=== PATIENT | female | born 1955 | race Caucasian/White ===

== ENCOUNTER 2017-04-29 08:14 | Outpatient (CLI) | payer BC | END 2017-04-29 08:15 | disposition home or self-care (01) | LOC: BICMAMMO 08:14 | PROVIDERS: ATTEND Obstetrics & Gynecology | DX: Z12.31 Encounter for screening mammogram for malignant neoplasm of breast (principal) | CPT/HCPCS: 77063; 77067 ==

== ENCOUNTER 2018-05-10 10:47 | Outpatient (CLI) | payer BC | END 2018-05-10 10:48 | disposition home or self-care (01) | LOC: BICMAMMO 10:47 | PROVIDERS: ATTEND Obstetrics & Gynecology | DX: Z12.31 Encounter for screening mammogram for malignant neoplasm of breast (principal); R92.1 Mammographic calcification found on diagnostic imaging of breast | CPT/HCPCS: 77063; 77067 ==

== ENCOUNTER 2019-07-18 11:38 | Outpatient (CLI) | payer BC ==
--- NOTE | 2019-07-18 12:07 | RAD ---
CERVICAL SPINE 7 VIEWS INCLUDING OBLIQUE VIEWS AND FLEXION AND EXTENSION LATERAL VIEWS: HISTORY: Inflammatory spondylopathy, radiculopathy, right-sided neck pain. FINDINGS: C7-T1 is partially obscured on the lateral view. C1 and C2 odontoid are partially obscured on the AP open mouth view. Generalized disk-osteophytosis and facet arthrosis changes are noted. There is a prominent osteophyte resulting in marked narrowing of the right C4-C5 foramen. There is approximatel y 0.3 cm anterolisthesis of C4 on C5, but no evidence for significant abnormal translation between fl exion and extension. No prevertebral soft tissue swelling. IMPRESSION: 1. A 0.3 cm anterolisthesis of C4 on C5 without abnormal translation between flexion and extension. Prominent right-sided C4-C5 foraminal osteophyte with marked foraminal narrowing. 2. No acute fracture or dislocation. 3. No evidence for bony erosive or destructive changes. 4. Consider followup MRI. POS: [facility]
--- NOTE | 2019-07-18 12:27 | BD ---
DEXA BONE DENSITY STUDY: HISTORY: Osteoporosis. Menopausal FINDINGS: Lumbar Spine: BMD (g/cm2) L1 0.723 T-Score: -2.4 L2 0.787 T-Score: -2.2 L3 0.810 T-Score: -2.5 L4 0.823 T-Score: -2.2 L1-L4 0.788 T-Score: -2.4 Evidence for osteopenia with increased risk for fracture. Bone mineral density has decreased approximately 21% from the prior 01/16/2010 study. Right Hip: Femoral Neck: 0.651 T-Score: -1.8 Total Femur: 0.914 T-Score: -0.2 Evidence for osteopenia with increased risk for fracture. Left Hip: Femoral Neck: 0.726 T-Score: -1.1 Total Femur: 0.968 T-Score: +0.2 Evidence for osteopenia with increased risk for fracture. Bone mineral density has decreased approximately 4.6% from 01/16/2010. FRAX Score: Major osteoporotic fracture 7.8% and hip fracture 0.5%. POS: [facility]
== END 2019-07-18 11:39 | disposition home or self-care (01) ==
LOC: BICRAD 11:38
PROVIDERS: ATTEND Internal Medicine Rheumatology
DX: M46.92 Unspecified inflammatory spondylopathy, cervical region (principal); M47.812 Spondylosis without myelopathy or radiculopathy, cervical region; M81.0 Age-related osteoporosis without current pathological fracture; M43.12 Spondylolisthesis, cervical region; M25.78 Osteophyte, vertebrae; M84.459A Pathological fracture, hip, unspecified, initial encounter for fracture
CPT/HCPCS: 72052; 77080

== ENCOUNTER 2020-07-07 14:24 | Outpatient (CLI) | payer BC | END 2020-07-07 14:25 | disposition home or self-care (01) | LOC: BICMRI 14:24 | PROVIDERS: ATTEND Internal Medicine Rheumatology | DX: M25.552 Pain in left hip (principal); D25.9 Leiomyoma of uterus, unspecified ==

== ENCOUNTER 2020-10-16 09:09 | Outpatient (CLI) | payer BC | END 2020-10-16 09:10 | disposition home or self-care (01) | LOC: BICMAMMO 09:09 | PROVIDERS: ATTEND Physician Assistant | DX: Z12.31 Encounter for screening mammogram for malignant neoplasm of breast (principal); Z91.89 Other specified personal risk factors, not elsewhere classified | CPT/HCPCS: 77063; 77067 ==

== ENCOUNTER 2020-12-31 08:20 | Outpatient (CLI) | payer BC | END 2020-12-31 08:21 | disposition home or self-care (01) | LOC: BICULT 08:20 | PROVIDERS: ATTEND Internal Medicine Rheumatology | DX: R74.8 Abnormal levels of other serum enzymes (principal); K76.0 Fatty (change of) liver, not elsewhere classified | CPT/HCPCS: 76705 ==

== ENCOUNTER 2021-01-09 17:11 | Outpatient (CLI) | payer BC ==
[2021-01-10 23:25] LABS: SARS-CoV-2 PCR by NAA Indeterminate (NotDetected)
== END 2021-01-09 17:12 | disposition home or self-care (01) ==
LOC: LABBT 17:11
PROVIDERS: ATTEND Neurological Surgery
DX: Z01.812 Encounter for preprocedural laboratory examination (principal); M54.16 Radiculopathy, lumbar region; Z20.822 Contact with and (suspected) exposure to COVID-19
CPT/HCPCS: U0003; U0005

== ENCOUNTER 2021-01-12 11:34 | Outpatient (CLI) | payer BC ==
[2021-01-12 19:13] LABS: SARS-CoV-2 PCR by NAA DETECTED (NotDetected)
== END 2021-01-12 11:35 | disposition home or self-care (01) ==
LOC: LABBT 11:34
PROVIDERS: ATTEND Neurological Surgery
DX: Z01.812 Encounter for preprocedural laboratory examination (principal); U07.1 COVID-19
CPT/HCPCS: U0003; U0005

== ENCOUNTER 2021-02-18 06:29 | Day surgery (SDC) | payer BC ==
[2021-02-17 12:15] VITALS: BMI 25.0
[2021-02-18] MEDS ORDERED: Fentanyl 100 MCG/2 ML VIAL ONE (06:37)
[2021-02-18] MEDS ORDERED: Midazolam HCl 2 mg/2 ml Vial ONE ×2 (06:37→07:26)
[2021-02-18] MEDS ORDERED: Thrombin 5000 UNITS/5 ML VIAL ONE (06:50)
[2021-02-18] MEDS ORDERED: Bupivacaine PF 0.5% 30 ML VIAL ONE (06:50)
[2021-02-18] MEDS ORDERED: EPINEPHrine 1 MG/ML AMP ONE (06:50)
[2021-02-18] MEDS ORDERED: ceFAZolin 2 GM/DEX 5% 100 ML BAG ONE ×2 (06:56→11:14)
[2021-02-18] MEDS ORDERED: HYDROmorphone 0.5 MG/0.5 ML SYRINGE ONE (07:16)
[2021-02-18] MEDS ORDERED: ePHEDrine 50 MG/ML VIAL ONE (07:59)
[2021-02-18] MEDS ORDERED: Ketorolac Tromethamine 30 MG/ML VIAL ONE (07:59)
[2021-02-18] MEDS ORDERED: PROPOFOL 200 MG/20 ML VIAL ONE (07:59)
[2021-02-18] MEDS ORDERED: Lidocaine 1% PF 5 ML VIAL ONE (07:59)
[2021-02-18] MEDS ORDERED: Glycopyrrolate 0.2 MG/ML 5 ML SYRINGE ONE (07:59)
[2021-02-18] MEDS ORDERED: Ondansetron PF 4 MG/2 ML Vial ONE (07:59)
[2021-02-18] MEDS ORDERED: Rocuronium Bromide 10 MG/ML (10ML VIAL) ONE (07:59)
[2021-02-18] MEDS ORDERED: Dexamethasone 20 MG/5 ML VIAL ONE (07:59)
[2021-02-18 08:06] LABS: #Eosinphils 0.2 thou/uL (0.0-0.7); #Lymphocytes 1.3 thou/uL (1.20-3.40); #Monocytes 0.4 thou/uL (0.11-0.59); #Neutrophils 1.8 thou/uL (1.40-6.50); %Basophils 0.6 % (0.0-1.0); %Eosinophils 6.4 % (0.0-10.0); %Lymphocytes 35.1 % (21.0-51.0); %Monocytes 9.5 % (0.0-10.0); %Neutrophils 48.3 % (42.0-75.0); Hemoglobin 11.8 g/dL (12.0-16.0); Mean Corpuscular Hemoglobin 35.7 pg (27.0-31.0); Mean Corpuscular Volume 99.2 fL (78.0-98.0); Mean Platelet Volume 7.4 fL (7.4-10.4); Platelet Count 137 thou/uL (130-400); RBC Distribution Width 11.5 % (11.5-14.5); White Blood Cell (WBC) Count 3.7 thou/uL (4.8-10.8)
[2021-02-18 08:26] LABS: Anion Gap 12 mmol/L (10-20); BUN (Urea Nitrogen) 10 mg/dL (9.8-20.1); Calc. Creatinine Clearance 97 mL/min (70-130); Calcium 8.8 mg/dL (7.8-10.44); Carbon Dioxide 25 mmol/L (23-31); Chloride 108 mmol/L (98-107); Glucose 93 mg/dL (80-115); Potassium 3.8 mmol/L (3.5-5.1); Sodium 141 mmol/L (136-145)
[2021-02-18] MEDS ORDERED: HYDROcodone/Acetaminophen 5/325 mg Tablet ONE (11:14)
== END 2021-02-18 12:26 | disposition home or self-care (01) ==
LOC: SDC 06:29
PROVIDERS: ATTEND Neurological Surgery
PROC: 01NB0ZZ Release Lumbar Nerve, Open Approach (ICD-10-PCS; principal; 2021-02-18)
DX: M47.26 Other spondylosis with radiculopathy, lumbar region (principal); M48.061 Spinal stenosis, lumbar region without neurogenic claudication; E78.5 Hyperlipidemia, unspecified; Z79.810 Long term (current) use of selective estrogen receptor modulators (SERMs); Z79.899 Other long term (current) drug therapy
CPT/HCPCS: 76000; 80048; 85025; J0171; J1100; J1170; J1885; J2250; J2405; J2704; J3010; J3490; S0020

== ENCOUNTER 2021-04-07 13:10 | Outpatient (CLI) | payer BC ==
[~2021-04-07 13:10] MED LIST: Magnevist 469MG/ML 20 ML VIAL ONE
[2021-04-07 14:28] LABS: Estimated GFR-MDRD - POC Greater than 90
== END 2021-04-07 13:11 | disposition home or self-care (01) ==
LOC: TBSIIMAG 13:10
PROVIDERS: ATTEND Neurological Surgery
DX: M51.16 Intervertebral disc disorders with radiculopathy, lumbar region (principal); Z98.890 Other specified postprocedural states
CPT/HCPCS: 72158; 82565

== ENCOUNTER 2021-06-22 09:24 | Outpatient (CLI) | payer BC | END 2021-06-22 09:25 | disposition home or self-care (01) | LOC: BICMAMMO 09:24 | PROVIDERS: ATTEND Internal Medicine Rheumatology | DX: M81.0 Age-related osteoporosis without current pathological fracture (principal); M85.89 Other specified disorders of bone density and structure, multiple sites | CPT/HCPCS: 77080 ==

== ENCOUNTER 2021-10-21 08:44 | Outpatient (CLI) | payer BC | END 2021-10-21 08:45 | disposition home or self-care (01) | LOC: BICMAMMO 08:44 | PROVIDERS: ATTEND Nurse Practitioner Family | DX: Z12.31 Encounter for screening mammogram for malignant neoplasm of breast (principal) | CPT/HCPCS: 77063; 77067 ==

== ENCOUNTER 2022-06-04 11:43 | Outpatient (CLI) | payer MEDICARE | END 2022-06-04 11:44 | disposition home or self-care (01) | LOC: BICRAD 11:43 | PROVIDERS: ATTEND Nurse Practitioner Family | DX: M25.511 Pain in right shoulder (principal); M47.22 Other spondylosis with radiculopathy, cervical region | CPT/HCPCS: 72040 ==

== ENCOUNTER 2022-10-25 07:54 | Outpatient (CLI) | payer MEDICARE | END 2022-10-25 07:55 | disposition home or self-care (01) | LOC: BICMAMMO 07:54 | PROVIDERS: ATTEND Nurse Practitioner Family | DX: Z12.31 Encounter for screening mammogram for malignant neoplasm of breast (principal); Z13.820 Encounter for screening for osteoporosis; M81.0 Age-related osteoporosis without current pathological fracture; M85.851 Other specified disorders of bone density and structure, right thigh; M85.852 Other specified disorders of bone density and structure, left thigh; Z91.89 Other specified personal risk factors, not elsewhere classified; Z78.0 Asymptomatic menopausal state | CPT/HCPCS: 77063; 77067; 77080 ==

== ENCOUNTER 2023-06-15 10:06 | Outpatient (CLI) | payer MEDICARE | END 2023-06-15 10:07 | disposition home or self-care (01) | LOC: BICRAD 10:06 | PROVIDERS: ATTEND Nurse Practitioner Family | DX: M79.644 Pain in right finger(s) (principal) ==

== ENCOUNTER 2024-01-24 08:05 | Outpatient (CLI) | payer MEDICARE | END 2024-01-24 08:06 | disposition home or self-care (01) | LOC: SCSMRI 08:05 | PROVIDERS: ATTEND Orthopaedic Surgery | DX: M47.22 Other spondylosis with radiculopathy, cervical region (principal); M47.23 Other spondylosis with radiculopathy, cervicothoracic region; M48.02 Spinal stenosis, cervical region; M48.03 Spinal stenosis, cervicothoracic region | CPT/HCPCS: 72141 ==